=== PATIENT | male | born 1940 | race Caucasian/White ===

== ENCOUNTER → 2023-06-11 09:08 | Outpatient (REF) | payer OTHER, SELFPAY ==
[2023-06-11 09:57] LABS: % Eosinophils 3.8 % (0-6); % Immature Granulocytes 0.2 % (0-0.5); % Lymphocytes 37.1 % (20.5-51.1); % Monocytes 9.3 % (1.7-9.3); % Neutrophils 48.6 % (42.2-75.2); Absolute Eosinophils 0.2 10^3/uL (0-0.7); Absolute Lymphocytes 1.6 10^3/uL (1.2-3.4); Absolute Monocytes 0.4 10^3/uL (0.1-0.6); Hematocrit 41.9 % (39.0-52.0); Hemoglobin 14.8 g/dL (13.0-18.0); Mean Corp Hgb Conc. 35.3 g/dL (33.0-37.0); Mean Corpuscular Volume 93.5 fL (80.0-94.0); Mean Platelet Volume 10.1 fL (7.4-10.4); Nucleated Red Blood Cells % 0 % (-); Platelet Count 200 10^3/uL (130-400); Red Blood Cell Count 4.48 10^6/uL (4.70-6.10); Red Cell Dist. Width 11.9 % (11.5-14.5); White Blood Cell Count 4.2 10^3/uL (4.8-10.8)
[2023-06-11 10:28] LABS: ALT (SGPT) 30 U/L (0-50); AST (SGOT) 21 U/L (17-59); Albumin 4.1 g/dl (3.5-5.0); Alkaline Phosphatase 49 U/L (38-126); Blood Urea Nitrogen 27 mg/dl (9-20); Calcium 9.4 mg/dl (8.4-10.2); Carbon Dioxide 29 mmol/L (22-30); Chloride 101 mmol/L (98-107); Glucose 151 mg/dl (70-99); HDL Cholesterol 43 mg/dl; LDL Cholesterol, Calculated 156 mg/dl; Potassium 4.4 mmol/L (3.5-5.1); Sodium 139 mmol/L (135-145); Total Bilirubin 0.7 mg/dl (0.2-1.3); Total Cholesterol 228 mg/dl (50-199); Total Protein 6.9 g/dl (6.3-8.2); Triglyceride 146 mg/dl (10-149); Very Low Density Lipoprotein 29 mg/dl (0-30); eGFR > 60.00
[2023-06-11 11:01] LABS: PSA, Total - Screen 2.99 ng/ml (0.0-4.0); TSH Reflex To Free T4 1.68 uIU/ml (0.47-4.68)
[2023-06-11 12:29] LABS: Glycohemoglobin (HgbA1c) 7.1 % (4.0-5.6)
== END ==
LOC: REG 09:08
PROVIDERS: ATTENDING PHYSICIAN Internal Medicine
DX: E11.69 Type 2 diabetes mellitus with other specified complication (principal); G47.33 Obstructive sleep apnea (adult) (pediatric); R53.83 Other fatigue; I73.9 Peripheral vascular disease, unspecified; H61.20 Impacted cerumen, unspecified ear; E78.2 Mixed hyperlipidemia; I10 Essential (primary) hypertension; E66.9 Obesity, unspecified; Z00.00 Encounter for general adult medical examination without abnormal findings; Z12.5 Encounter for screening for malignant neoplasm of prostate
CPT/HCPCS: 36415; 80053; 80061; 83036; 84443; 85025; G0103

== ENCOUNTER → 2023-06-28 09:55 | Outpatient (REF) | payer OTHER, SELFPAY | LOC: RAD 09:55 | PROVIDERS: ATTENDING PHYSICIAN Surgery Vascular Surgery; FAMILY PHYSICIAN Internal Medicine | DX: I71.40 Abdominal aortic aneurysm, without rupture, unspecified (principal) | CPT/HCPCS: 76770 ==

== ENCOUNTER → 2023-10-15 08:53 | Outpatient (REF) | payer OTHER, SELFPAY ==
[2023-10-15 09:47] LABS: Glycohemoglobin (HgbA1c) 7.3 % (4.0-5.6)
[2023-10-15 09:57] LABS: ALT (SGPT) 25 U/L (0-50); AST (SGOT) 24 U/L (17-59); Albumin 4.7 g/dl (3.5-5.0); Alkaline Phosphatase 55 U/L (38-126); Direct Bilirubin 0.3 mg/dl (0.0-0.4); Glucose 177 mg/dl (70-99); HDL Cholesterol 59 mg/dl; LDL Cholesterol, Calculated 78 mg/dl; Total Bilirubin 0.7 mg/dl (0.2-1.3); Total Cholesterol 189 mg/dl (50-199); Total Protein 7.6 g/dl (6.3-8.2); Triglyceride 262 mg/dl (10-149); Very Low Density Lipoprotein 52 mg/dl (0-30)
== END ==
LOC: REG 08:53
PROVIDERS: ATTENDING PHYSICIAN Internal Medicine
DX: E16.9 Disorder of pancreatic internal secretion, unspecified (principal); I10 Essential (primary) hypertension; E78.2 Mixed hyperlipidemia; E66.9 Obesity, unspecified; E11.65 Type 2 diabetes mellitus with hyperglycemia
CPT/HCPCS: 36415; 80061; 80076; 82947; 83036

== ENCOUNTER → 2023-12-31 09:11 | Outpatient (REF) | payer OTHER, SELFPAY | LOC: RAD 09:11 | PROVIDERS: ATTENDING PHYSICIAN Registered Nurse; FAMILY PHYSICIAN Internal Medicine | DX: I73.9 Peripheral vascular disease, unspecified (principal); I71.40 Abdominal aortic aneurysm, without rupture, unspecified | CPT/HCPCS: 76770; 93922; 93925 ==

== ENCOUNTER → 2024-02-18 08:51 | Outpatient (REF) | payer OTHER, SELFPAY ==
[2024-02-18 11:17] LABS: ALT (SGPT) 25 U/L (0-50); AST (SGOT) 31 U/L (17-59); Albumin 4.6 g/dl (3.5-5.0); Alkaline Phosphatase 69 U/L (38-126); Glucose 154 mg/dl (70-99); HDL Cholesterol 65 mg/dl; LDL Cholesterol, Calculated 79 mg/dl; Total Bilirubin 0.8 mg/dl (0.2-1.3); Total Cholesterol 174 mg/dl (50-199); Total Protein 7.3 g/dl (6.3-8.2); Triglyceride 151 mg/dl (10-149); Very Low Density Lipoprotein 30 mg/dl (0-30)
== END ==
LOC: REG 08:51
PROVIDERS: ATTENDING PHYSICIAN Internal Medicine
DX: E11.9 Type 2 diabetes mellitus without complications (principal); I10 Essential (primary) hypertension; E78.2 Mixed hyperlipidemia
CPT/HCPCS: 36415; 80061; 80076; 82947; 83036

== ENCOUNTER 2024-05-07 17:56 | Inpatient (IN) | payer OTHER, SELFPAY ==
[2024-05-07] VITALS (27 sets, daily range): BP systolic 102–189; BP diastolic 57–141; BMI 31.7; BMI 35.5
[2024-05-07 11:39] LABS: % Basophils 0.2 % (0-2); % Eosinophils 0.8 % (0-6); % Immature Granulocytes 0.4 % (0-0.5); % Lymphocytes 10.9 % (20.5-51.1); % Monocytes 8.5 % (1.7-9.3); % Neutrophils 79.2 % (42.2-75.2); Absolute Eosinophils 0.1 10^3/uL (0-0.7); Absolute Lymphocytes 1.1 10^3/uL (1.2-3.4); Absolute Monocytes 0.9 10^3/uL (0.1-0.6); Absolute Neutrophils 8.3 10^3/uL (1.4-6.5); Hematocrit 42.7 % (39.0-52.0); Hemoglobin 15.5 g/dL (13.0-18.0); Mean Corp Hgb Conc. 36.3 g/dL (33.0-37.0); Mean Corpuscular Hgb 34.3 pg (27.0-31.0); Mean Corpuscular Volume 94.5 fL (80.0-94.0); Mean Platelet Volume 10.2 fL (7.4-10.4); Nucleated Red Blood Cells % 0 % (-); Platelet Count 190 10^3/uL (130-400); Red Blood Cell Count 4.52 10^6/uL (4.70-6.10); Red Cell Dist. Width 12.9 % (11.5-14.5); White Blood Cell Count 10.4 10^3/uL (4.8-10.8)
[2024-05-07 11:45] LABS: ALT (SGPT) 30 U/L (0-50); AST (SGOT) 46 U/L (17-59); Albumin 5.4 g/dl (3.5-5.0); Alkaline Phosphatase 62 U/L (38-126); Blood Urea Nitrogen 20 mg/dl (9-20); Calcium 9.3 mg/dl (8.4-10.2); Carbon Dioxide 17 mmol/L (22-30); Chloride 97 mmol/L (98-107); Glucose 212 mg/dl (70-99); Potassium 5.7 mmol/L (3.5-5.1); Sodium 136 mmol/L (135-145); Total Protein 8.4 g/dl (6.3-8.2); eGFR > 60.00
--- NOTE | 2024-05-07 14:15 | ED.GENMED ---
History of Present Illness
General
Chief Complaint: Fall
Source: patient
Exam Limitations: none
Time Seen by Provider: 05/07/24 14:02
Nursing documentation reviewed up to this point in time: agreed with
History of Present Illness
History of Present Illness:
83-year-old male with a past medical history of hypertension, AAA status post repair, GERD, diabetes, daily alcohol use who presents to the emergency department for evaluation of right shoulder injury after fall. Patient reports that last night
around 11 PM he was walking in his house; he says he had 'too much to drink' and he lost his balance and fell down. He is not sure whether he hit his head, says that he did not lose consciousness. He landed on his right shoulder and injured the
right shoulder. He says he was not able to get up on his own and so he slept on the ground for the night and when his woke up she discovered him and ultimately convinced him to come to the hospital via EMS. He complains of pain in his right
shoulder but he denies any other complaints. She denies any headache or neck pain, back pain. Denies any pain in the chest/ribs. Denies any abdominal pain. He does not feel nauseated has not been vomiting. He denies any pain in his lower
extremities and was able to put weight on his legs here in the ER. He denies being on any blood thinners aside from baby aspirin.
Past History
Past History
ED Past Medical History: HTN, Hypercholesterolemia, NIDDM and Other (PAD)
ED Past Surgical History: Other (Aortic stent)
Social History
Tobacco: Former smoker
Alcohol: Daily
Personal:
Living: with family
Family History
Family History: Negative Diabetes, Hypertension, Early CAD, Asthma or Cancer
Review of Systems
Review of Systems
All Other Systems: ROS reviewed and negative except as documented in HPI and ROS
Constitutional: Denies fever
Respiratory: Denies trouble breathing
Cardiac: Denies chest pain
ABD/GI: Denies abdominal pain, nausea or vomiting
: Denies flank pain
Musculoskeletal: Reports joint pain; Denies neck pain or back pain
Neurological: Denies dizzy or headache
Phy Exam
Physical Exam
Physical Exam:
General: Awake, alert, oriented x3 with a GCS of 15; no acute distress
Head: Normocephalic, minor contusion to the right frontal scalp
Eyes: Conjunctiva normal, pupils equal round and reactive to light bilaterally
Throat: Airway intact, dry mucous membranes
Neck: Trachea midline, no cervical spine tenderness, good range of motion of the cervical spine
Back: No signs of trauma the back or flank and no reproducible tenderness in the thoracic or lumbar spine
Lungs: Clear to auscultation bilaterally, no wheezing, rales, rhonchi
Heart: Tachycardia with regular rhythm, no murmurs, gallops, or rubs; no chest wall tenderness
Abd: Soft, non distended, nontender
Neuro: Cranial nerves grossly intact, speech fluid, no gross motor or sensory deficits�specifically motor and sensory intact radial, median, ulnar nerve distribution right upper extremity
Extremities: Patient has deformity the right shoulder and pain with any attempts of range of motion of the right shoulder; no tenderness in the right elbow, forearm, wrist, good strong right radial pulse and brisk capillary refill in the hand; rest
of extremities are essentially atraumatic (old abrasions to the shins he says from yardwork); full range of motion in all joints of the lower extremities without pain
Scores
Heart Failure Risk
Heart Failure Risk Score: Not Applicable
Heart Score for Chest Pain Patients
STEMI patient?: Not applicable
Withdrawal Assessment of Alcohol
Withdrawal Assessment Completed?: Not applicable
Course
Orders/Labs/Results
Orders:
Orders
05/07/24 11:11
EKG [Electrocardiogram (*1)] Urgent
Reason for Study: Hypertension, Benign
CR Shoulder, Trauma - Right Urgent
Comment:
Reason For Exam: fall
05/07/24 11:12
EKG- Treatment ONCE
05/07/24 11:24
Complete Blood Count/With Diff Urgent
Comprehensive Metabolic Panel Urgent
Creatine Phosphokinase Urgent
Comment: ADD ON
05/07/24 14:10
Add On- LAB Urgent
Tests Added?: CPK
CT Head W/o Iv Contrast Urgent
Comment:
Reason For Exam: fall with right frontal headstrike
05/07/24 14:11
CT Cervical Spine W/o Iv Contr Urgent
Comment:
Reason For Exam: fall with right frontal headstrike
0.9% Sodium Chloride 1000 ml [Nss] 1,000 ml IV BOLUS
05/07/24 14:38
Ketorolac [Toradol] 15 mg IV NOW STA
05/07/24 16:08
Propofol [Diprivan] 40 ml .ROUTE .STK-MED
05/07/24 16:35
CR Shoulder - Right Min 2 View Urgent
Comment:
Reason For Exam: post closed reduction
Abnormal Lab Results
05/07/24
11:24
RBC 4.52 L 10^6/uL
(4.70-6.10)
MCV 94.5 H fL
(80.0-94.0)
MCH 34.3 H pg
(27.0-31.0)
Absolute Neuts (auto) 8.3 H 10^3/uL
(1.4-6.5)
Absolute Lymphs (auto) 1.1 L 10^3/uL
(1.2-3.4)
Absolute Monos (auto) 0.9 H 10^3/uL
(0.1-0.6)
Neutrophils % 79.2 H %
(42.2-75.2)
Lymphocytes % 10.9 L %
(20.5-51.1)
Potassium 5.7 H mmol/L
(3.5-5.1)
Chloride 97 L mmol/L
(98-107)
Carbon Dioxide 17 L mmol/L
(22-30)
Glucose 212 H mg/dl
(70-99)
Creatine Kinase 1018 H U/L
(55-170)
Total Protein 8.4 H g/dl
(6.3-8.2)
Albumin 5.4 H g/dl
(3.5-5.0)
05/07/24 11:24
05/07/24 11:24
Vital Signs
Initial and Last Documented VS:
Initial Vital Signs
Temp Pulse Resp BP Pulse Ox
36.2 C 107 18 189/103 98
05/07/24 11:08 05/07/24 11:08 05/07/24 11:08 05/07/24 11:08 05/07/24 11:08
Last Documented Vital Signs
Temp Pulse Resp BP Pulse Ox
36.4 C 117 18 125/87 95
05/07/24 16:32 05/07/24 16:37 05/07/24 16:37 05/07/24 16:37 05/07/24 16:37
Procedures
Moderate Sedation
ASA Risk Score: Class III
Chart and allergies reviewed: Yes
Consent for anesthesia obtained: Yes
Time out completed (validating right patient & procedure): Yes
Moderate Sedation Start Time(when first medication is given): 16:32
History of difficult intubation: No
Airway free of obstruction: Yes
Patient has a gag reflex: Yes
Patient is able to open mouth: Yes
Patient has no dentures: Yes
Patient has no loose teeth: Yes
Medication administered by Provider during Moderate Sedation: IV Propofol (mg)
Total dose administered: 100
Time drug administered: 16:32
Moderate Sedation Procedure End Time: 16:42
Joint/Fracture Reduction
Right Shoulder:
Indication for procedure:: dislocated shoulder
Procedure completed by: Gian Murphy MD; Rashard Vickers PA-C
Consent form signed: Yes
Anesthesia/sedation: Moderate sedation
Injury was: closed
Further treatement: needs re-check only
Post reduction exam: stable
Capillary Refill: normal
Normal distal neurovascular exam?: Yes
Peripheral Pulses: radial (right): 2+
MDM/Problems Addressed
Differential Diagnosis Includes:
Right shoulder injury: Fracture, dislocation
MDM/Problems Addressed:
83-year-old male presents for evaluation after mechanical fall while intoxicated last night; laid on the ground because he was unable to get up on his own due to right shoulder injury. Arrives to us hypertensive, tachycardic. Physical exam as
above. He had lab work sent in triage including CBC and a CMP�CBC no clinically significant abnormalities, CMP shows mild hyperkalemia with mild metabolic acidosis. Added CPK given prolonged downtime. EKG reviewed shows sinus rhythm. X-ray of
the shoulder done in triage shows anterior and inferior dislocation on my independent review�no fracture noted. Will send for CT head and cervical spine. Await CPK. Provide IV fluids. Will need sedation and reduction of shoulder dislocation.
Monitor closely reassess after the above.
CT head no acute pathology, CT cervical spine no acute pathology. Labs reviewed patient does have rhabdomyolysis with CPK greater than thousand and mild hyperkalemia. IV fluids in progress. His shoulder dislocation was reduced at bedside under
moderate sedation, postreduction x-ray shows appropriate position, patient placed in a sling will need Ortho follow-up within a week or 2. Advised to maintain sling at all times. Will plan to admit for continued treatment of rhabdomyolysis.
Discussed with hospitalist for admission.
Chronic conditions affecting care:
Daily alcohol use
Acute Exacerbation and/or Progression of Chronic Illness:
Acutely hypertensive
Acute Exacerbation and/or Progression of Chronic Illness: HTN
*Radiology
Radiology exam reviewed: preliminary read by ED provider and radiology read reviewed
*Pulse Oximetry
Patient hypoxic: no
*EKG
Interpreted by ED Provider?: Yes
Heart Rate: 114
Rate: tachycardiac
Rhythm: sinus, PAC's, PVC's and sinus tachycardia
Interval: normal interval
QRS Pattern: normal QRS
Ischemia: non-specific ST changes
*Critical Care Note
Total Time (30-74mins, 75-104mins- exclusive of procedures): Not Applicable
Data Reviewed
Review of Other/Old Records Reveals: Labs and Records
Source: patient, records and ambulance crew
Patient Management
Discussion with other providers: Hospitalist (Discussed with hospitalist)
Escalation/DeEscalation of care consider admission/obs:
Admission indicated
ED Attending Note
-
Portions of this chart may have been created with voice recognition software.� Occasional wrong word or��sound alike� substitutions may have occurred due to the inherent limitations of voice recognition software.
Discharge Plan
Departure
Patient Disposition: Admit
Date of Disposition: 05/07/24
Time of Disposition: 16:45
Admit to doctor: Mary
Presentation/result/management discussed w/ accepting MD/DO: Hospitalist
Discharge Problem:
Rhabdomyolysis, Hyperkalemia, Anterior dislocation of right shoulder
Prescriptions:
No Action
ascorbic acid (vitamin C) [Vitamin C] 1,000 MG tablet
1,000 mg PO DAILY
vitamin A 10,000 UNIT capsule
10,000 unit PO DAILY
vit B complex 100 combo no.2 [B-100 Complex] 100 MG tablet extended release
100 mg PO DAILY
calcium carbonate-mag hydroxid [Rolaids] 1 EACH tablet,chewable
1 ea PO DAILY
aspirin [Ecotrin Low Strength] 81 MG tablet,delayed release (DR/EC)
162 mg PO DAILY
simvastatin 20 MG tablet
20 mg PO HS
esomeprazole magnesium [Nexium] 40 MG capsule,delayed release(DR/EC)
40 mg PO DAILY
ranitidine HCl [Zantac] 150 MG tablet
150 mg PO HS
lisinopril 10 MG tablet
10 mg PO DAILY
vitamin E 400 UNIT capsule
400 unit PO DAILY
chromium 200 MCG capsule
200 mcg PO DAILY
cholecalciferol (vitamin D3) [Vitamin D3] 2,000 UNIT capsule
2,000 unit PO DAILY
omega 5-tcy-dis-fish oil [[place]-3] 1 EACH capsule,delayed release(DR/EC)
350 - 400 mg PO DAILY
zinc 50 MG tablet
50 mg PO DAILY
metformin 500 MG tablet extended release 24 hr
1,000 mg PO BID
lutein 40 MG capsule
40 mg PO DAILY
hydrocortisone acetate 25 MG suppository
25 mg ND BID Qty: 10 0RF
tramadol 50 MG tablet
50 mg PO Q6HPRN PRN (Reason: severe pain) Qty: 10 0RF
lidocaine 5 % adhesive patch,medicated
1 patch topical DAILY Qty: 15 0RF
Rx Instructions:
remove after 12 hrs
Referrals:
Fernando Guzman MD [Family Provider] -
Interventions
Interventions:
*Risk Screen - Suicide Last Done: 05/07/24 11:08
*General Assessment Last Done: 05/07/24 11:08
*Neglect/Abuse Screening Last Done: 05/07/24 14:15
ED- Fall Risk Assessment Last Done: 05/07/24 14:15
*ED COVID-19 Vaccine History Last Done: 05/07/24 11:08
ED-Musculoskeletal Assessment Last Done: 05/07/24 14:15
ED- Neurological Assessment Last Done: 05/07/24 14:15
ED-Skin Assessment Last Done: 05/07/24 14:15
Discharge Date and Time
Print Language: TANZANIAN
[2024-05-07] MEDS: NSS 1000 IV ×2 (14:27→21:57)
[2024-05-07] MEDS: TORADOL 15 MG IV (14:42)
[2024-05-07 14:44] LABS: Creatine Phosphokinase 1018 U/L (55-170)
--- NOTE | 2024-05-07 16:58 | EDRN ---
hospitalist currently at the pts bedside
--- NOTE | 2024-05-07 17:05 | HPS.HSE ---
Family Physician
-
Family Physician: Stefan Guzman
Chief Complaint
-
fall, right shoulder pain
History of Present Illness
83-year-old male past medical history abdominal aortic aneurysm status post repair, hypertension, GERD, diabetes, daily alcohol use presenting with right shoulder injury after a fall. Last night around 11 PM he was walking in his house states that
he had too much to drink and he lost his balance and fell down. He is not sure whether he hit his head. He landed on his right shoulder and injured the right shoulder. He was not able to get up on his own and so slept on the ground for the night
when his woke up she discovered him convince him to come to the hospital. He complains of pain in his right shoulder but denies any other complaints. Denies headache or neck pain or back pain. Denies chest pain or rib pain. Denies abdominal
pain. Denies nausea or vomiting.
He drinks 3-4 drinks of 8 ounces of rum every day which she last drank last night. Denies smoking. Denies any nausea vomiting or palpitations or chest pain or signs of withdrawal currently.
Medical History
Past Medical History
Past Medical History: Reports Other (abdominal aortic aneurysm status post repair, hypertension, GERD, diabetes, daily alcohol use)
Past Surgical History: Reports None
Social History
Tobacco: Non-smoker
Alcohol: Daily
Drug: None
Family History
Family History: Not pertinent
Allergies / Home Medications
Allergies reflects when Allergies were last updated in [facility].
Home Medications with original date entered in [facility]
Allergy/Medication List:
Allergies
Allergy/AdvReac Type Severity Reaction Status Date / Time
egg Allergy Unknown Verified 05/07/24 11:12
nut - unspecified Allergy Swelling Verified 05/07/24 11:12
Penicillins Allergy Swelling Verified 05/07/24 11:12
Home Medications
ascorbic acid (vitamin C) 1,000 mg tablet (Vitamin C) 1,000 mg PO DAILY 03/12/16
aspirin 81 mg tablet,delayed release (Ecotrin Low Strength) 162 mg PO DAILY 03/12/16
calcium carbonate 550 mg-magnesium hydroxide 110 mg chewable tablet (Rolaids) 1 ea PO DAILY 03/12/16
cholecalciferol (vitamin D3) 50 mcg (2,000 unit) capsule (Vitamin D3) 2,000 unit PO DAILY 03/12/16
chromium 200 mcg capsule 200 mcg PO DAILY 03/12/16
esomeprazole magnesium 40 mg capsule,delayed release (Nexium) 40 mg PO DAILY 03/12/16
lisinopril 10 mg tablet 10 mg PO DAILY 03/12/16
omega 3 350 mg-dha 235 mg-epa 90 mg-fish oil 597 mg capsule,delay rel ([place]-3) 350 - 400 mg PO DAILY 03/12/16
ranitidine HCl 150 mg tablet (Zantac) 150 mg PO HS 03/12/16
simvastatin 20 mg tablet 20 mg PO HS 03/12/16
vit B complex 100 combo no.2 100 mg tablet,extended release (B-100 Complex ER) 100 mg PO DAILY 03/12/16
vitamin A 3,000 mcg (10,000 unit) capsule 10,000 unit PO DAILY 03/12/16
vitamin E 268 mg (400 unit) capsule 400 unit PO DAILY 03/12/16
lutein 40 mg capsule 40 mg PO DAILY 11/19/19
metformin 500 mg tablet,extended release 24 hr 1,000 mg PO BID 11/19/19
zinc 50 mg tablet 50 mg PO DAILY 11/19/19
hydrocortisone acetate 25 mg rectal suppository 25 mg [place] BID Gastrointestinal issue ##10 12/23/19
tramadol 50 mg tablet 50 mg PO Q6HPRN PRN severe pain #10 tabs 08/30/20
lidocaine 5 % topical patch 1 patch topical DAILY #15 ea 03/13/23
Review of Systems
-
History Source: Patient
A 12 point ROS was completed and negative except as noted: Yes
Constitutional: Reports No Symptoms
EENT: Reports No Symptoms
Respiratory: Reports No Symptoms
Cardiac: Reports No Symptoms
Abdomen/GI: Reports No Symptoms
: Reports No Symptoms
Musculoskeletal: Reports No Symptoms
Skin: Reports No Symptoms
Neurological: Reports No Symptoms
Endocrine: Reports No Symptoms
Hematologic/Lymphatic: Reports No Symptoms
Psych: Reports No Symptoms
Physical Exam
Vital Signs
Vital Signs
Temp Pulse Resp BP Pulse Ox
98.1 F 110 24 102/72 99
05/07/24 16:50 05/07/24 17:00 05/07/24 17:00 05/07/24 17:00 05/07/24 17:00
Physical Exam
General: Well Developed, Well Nourished and No Apparent Distress
HEENT: NormoCephalic, Moist mucous membranes and Atraumatic
Respiratory: Clear
Cardiac: S1/S2 and Regular Rhythm; No Murmur or Rub
GI: Soft, Non Tender, Non Distended and Normal Bowel Sounds; No Organomegaly
Rectal: Deferred by Provider
Musculoskeletal: No Clubbing, No Cyanosis and No Edema
Skin: No Rash
Neuro: Nonfocal/grossly intact
Laboratory Results
-
05/07/24 11:24
05/07/24 11:24
Laboratory Results
Total Bilirubin 1.0 mg/dl (0.2-1.3) 05/07/24 11:24
AST 46 U/L (17-59) 05/07/24 11:24
ALT 30 U/L (0-50) 05/07/24 11:24
Alkaline Phosphatase 62 U/L (38-126) 05/07/24 11:24
Troponin I Cancelled 05/07/24 11:11
Data Reviewed
-
Lab Data: Labs Reviewed by me
Old Records: Reviewed
Impression/Plan
-
IMPRESSION:
PLAN:
# Right shoulder dislocation
-Reduced in ER
-Splint placed
-Tylenol
# Rhabdomyolysis after fall
# Hyperkalemia
# Metabolic acidosis secondary to rhabdomyolysis
-CK 1000
-IV fluids
-Hold metformin, lisinopril
#Fall secondary to alcohol use
# Daily alcohol user
-Thiamine and folate
-Alcohol withdrawal protocol
Abdominal aortic aneurysm
Essential hypertension
-Hold lisinopril
GERD
-Continue ranitidine, esomeprazole
Type 2 diabetes
-Hold metformin
-ISS
Daily alcohol user
-Alcohol withdrawal protocol
Hyperlipidemia
Obesity
Mild asthma
Obstructive sleep apnea
Erectile dysfunction
Peripheral arterial disease
Full code
DVT prophylaxis�heparin
Regular diet
--- NOTE | 2024-05-07 18:09 | EDRN ---
this RN called the receiving unit and notified them that paper report was going to be tubed up
--- NOTE | 2024-05-07 18:32 | EDRN ---
the pts HR went into the 120-150's, Sinus Tachycardia, this RN notified Dr. Hernandez
[2024-05-07] MEDS: ATIVAN 2 MG IV (18:38)
--- NOTE | 2024-05-07 18:41 | EDRN ---
per Dr. Hernandez, this RN gave Ativan 2mg IV, the pt is resting in stretcher in the lowest position, side rails up x2, call styles within reach, HOB elevated, no s/s of distress, VS WNL, HR in the 120's, the pt asked to go to the bathroom and the pt
was educated on the use of the urinal and was agreeable to it, the pt was provided with a urinal, will continue to monitor the pt closely
--- NOTE | 2024-05-07 18:47 | EDRN ---
this RN also notified Dr. Hernandez that the pt has occasional PVC's, no new orders were received
[2024-05-07] MEDS: HEPARIN 5000 UNITS SC (21:53)
[2024-05-07] MEDS: THIAMINE INJECTION 200 MG IV (21:54)
[2024-05-07 22:42] LABS: Glucose - Point of Care 173 mg/dl (70-99)
[2024-05-08 03:05] VITALS: BP 163/85
--- NOTE | 2024-05-08 03:58 | PTCARENOTE ---
pt received on unit at approximately 05/07. VSS. AAOx2-3. Pt in a right arm sling. Pt oriented to room and able to make needs known, call styles within reach.
[2024-05-08 06:00] VITALS: BMI 35.5
[2024-05-08] MEDS: NSS 1000 IV ×3 (06:41→19:16)
[2024-05-08 07:00] VITALS: BP 167/99
[2024-05-08 08:07] LABS: Glucose - Point of Care 151 mg/dl (70-99)
[2024-05-08] MEDS: NOVOLOG FLEXPEN-LOW RESISTANCE SC ×2 (08:14→17:22)
[2024-05-08] MEDS: HEPARIN 5000 UNITS SC ×2 (08:29→19:13)
[2024-05-08] MEDS: THIAMINE INJECTION 200 MG IV ×2 (08:29→19:12)
[2024-05-08] MEDS: B COMPLEX w/VITAMIN C 1 CAPLET PO (08:30)
[2024-05-08] MEDS: FOLVITE 1 MG PO (08:30)
[2024-05-08] MEDS: VITAMIN D3 (cholecalciferol) 50 MCG PO (08:30)
[2024-05-08] MEDS: VITAMIN C 1000 MG PO (08:30)
[2024-05-08] MEDS: DETROL LA 4 MG PO (08:31)
[2024-05-08] MEDS: VITAMIN E 400 UNITS PO (08:31)
[2024-05-08] MEDS: PROTONIX 40 MG PO (08:31)
[2024-05-08] MEDS: ASPIR LOW (ENTERIC COATED) 81 MG PO (08:31)
[2024-05-08] MEDS: SYMBICORT 160/4.5 MCG INHALER 2 PUFF INH ×2 (08:56→20:16)
[2024-05-08 09:27] LABS: ALT (SGPT) 24 U/L (0-50); AST (SGOT) 39 U/L (17-59); Alkaline Phosphatase 41 U/L (38-126); Blood Urea Nitrogen 23 mg/dl (9-20); Calcium 8.1 mg/dl (8.4-10.2); Carbon Dioxide 21 mmol/L (22-30); Chloride 103 mmol/L (98-107); Estimated Creatinine Clearance 73 ml/min; Glucose 159 mg/dl (70-99); Potassium 4.3 mmol/L (3.5-5.1); Sodium 137 mmol/L (135-145); Total Bilirubin 0.8 mg/dl (0.2-1.3); Total Protein 6.6 g/dl (6.3-8.2); eGFR > 60.00
[2024-05-08] MEDS: ZESTRIL 10 MG PO (09:52)
[2024-05-08] MEDS: PRANDIN 2 MG PO ×2 (09:53→17:20)
[2024-05-08 10:16] LABS: % Basophils 0.5 % (0-2); % Eosinophils 0.2 % (0-6); % Immature Granulocytes 0.3 % (0-0.5); % Lymphocytes 18.2 % (20.5-51.1); % Monocytes 11.6 % (1.7-9.3); % Neutrophils 69.2 % (42.2-75.2); Absolute Lymphocytes 1.1 10^3/uL (1.2-3.4); Absolute Monocytes 0.7 10^3/uL (0.1-0.6); Absolute Neutrophils 4.2 10^3/uL (1.4-6.5); Hematocrit 35.8 % (39.0-52.0); Hemoglobin 13.1 g/dL (13.0-18.0); Mean Corp Hgb Conc. 36.6 g/dL (33.0-37.0); Mean Corpuscular Hgb 34.5 pg (27.0-31.0); Mean Corpuscular Volume 94.2 fL (80.0-94.0); Nucleated Red Blood Cells % 0 % (-); Red Cell Dist. Width 12.9 % (11.5-14.5); White Blood Cell Count 6.1 10^3/uL (4.8-10.8)
[2024-05-08 10:28] LABS: Creatine Phosphokinase 999 U/L (55-170)
[2024-05-08 11:10] VITALS: BP 147/90
[2024-05-08 11:44] LABS: Glucose - Point of Care 211 mg/dl (70-99)
[2024-05-08] MEDS: NOVOLOG FLEXPEN-LOW RESISTANCE 2 UNITS SC (12:10)
[2024-05-08 12:29] LABS: Glycohemoglobin (HgbA1c) 5.6 % (4.0-5.6)
--- NOTE | 2024-05-08 13:30 | W.PN.HOSP.TC ---
Today's Communication/Plan
-
Monitor vitals
See plan
Monitor CK
Encourage hydration
PT/OT
Continue with sling
Assessment / Plan
Assessment / Plan
General: Well Developed, Well Nourished and No Apparent Distress
HEENT: NormoCephalic, Moist mucous membranes and Atraumatic
Respiratory: Clear
Cardiac: S1/S2 and Regular Rhythm; No Murmur or Rub
GI: Soft, Non Tender, Non Distended and Normal Bowel Sounds
Musculoskeletal: No Edema
Neuro: Nonfocal/grossly intact
Right shoulder dislocation
-Reduced in ER
-Sling placed; patient to follow-up with orthopedics outpatient
-Tylenol
# Traumatic rhabdomyolysis after fall
# Hyperkalemia
# Metabolic acidosis secondary to rhabdomyolysis
Monitor CK
-IV fluids
-Hold metformin, lisinopril
#Fall secondary to alcohol use
# Daily alcohol user
-Thiamine and folate
-Alcohol withdrawal protocol
Abdominal aortic aneurysm
Essential hypertension
-Hold lisinopril
GERD
-Continue ranitidine, esomeprazole
Type 2 diabetes
-Hold metformin
-ISS
Daily alcohol user
-Alcohol withdrawal protocol
Hyperlipidemia
Obesity
Mild asthma
Obstructive sleep apnea
Erectile dysfunction
Peripheral arterial disease
Full code
DVT prophylaxis�heparin
Anticipated Discharge: Within 24 hours
Subjective/Interval History
-
Date of Service: May 08, 2024
denies nausea
Objective Data
-
Labs:
Laboratory Results
05/08/24 05/08/24
08:23 09:06
WBC Cancelled 6.1
Hgb Cancelled 13.1
Hct Cancelled 35.8 L
Plt Count Cancelled Pending
Sodium 137
Potassium 4.3
Chloride 103
Carbon Dioxide 21 L
BUN 23 H
Creatinine 0.9
Glucose 159 H
Calcium 8.1 L
Total Bilirubin 0.8
AST 39
ALT 24
Alkaline Phosphatase 41
Vital Signs:
Vital Signs
Temp Pulse Resp BP Pulse Ox
98.7 F 109 20 147/90 95
05/08/24 11:10 05/08/24 11:10 05/08/24 11:10 05/08/24 11:10 05/08/24 11:10
I&O
05/07/24 05/08/24 05/09/24
06:59 06:59 06:59
Intake Total 1080 / 1080 480 / 480
Output Total 150 / 150
Balance 1080 / 1080 330 / 330
[2024-05-08 13:36] LABS: Platelet Count 100 10^3/uL (130-400)
[2024-05-08] MEDS: MOTRIN 400 MG PO (14:39)
[2024-05-08 15:00] VITALS: BP 127/92
--- NOTE | 2024-05-08 16:28 | CM ---
traffic incident management manager reviewed patient's chart and met with patient and patient states that he fell at home, he lives with his spouse in a 2 story home, 2 steps to enter, patient is independent with adl's and ambulation, no dme, home with spouse when stable.
PCP: Dr Guzman
Pharmacy [facility].
[2024-05-08] MEDS: LIPITOR 20 MG PO (17:20)
[2024-05-08 17:24] LABS: Glucose - Point of Care 94 mg/dl (70-99)
[2024-05-08 19:36] VITALS: BP 123/74
[2024-05-08 20:35] LABS: Glucose - Point of Care 161 mg/dl (70-99)
[2024-05-08 23:17] VITALS: BP 145/95
[2024-05-09 03:03] VITALS: BP 158/99
--- NOTE | 2024-05-09 04:13 | PTCARENOTE ---
NSS 120ml/hr reached renew stop date, INTAKE SPECIALIST notified. D/T rhabdomyolysis and elevated CK, fluids renewed and restarted.
[2024-05-09] MEDS: NSS 1000 IV (04:16)
[2024-05-09 07:35] LABS: Glucose - Point of Care 146 mg/dl (70-99)
[2024-05-09 07:46] VITALS: BP 151/93
[2024-05-09] MEDS: SYMBICORT 160/4.5 MCG INHALER 2 PUFF INH (08:01)
[2024-05-09] MEDS: HEPARIN 5000 UNITS SC (09:35)
[2024-05-09] MEDS: VITAMIN C 1000 MG PO (09:36)
[2024-05-09] MEDS: VITAMIN E 400 UNITS PO (09:36)
[2024-05-09] MEDS: VITAMIN D3 (cholecalciferol) 50 MCG PO (09:36)
[2024-05-09] MEDS: PRANDIN 2 MG PO ×2 (09:36→13:30)
[2024-05-09] MEDS: DETROL LA 4 MG PO (09:37)
[2024-05-09] MEDS: B COMPLEX w/VITAMIN C 1 CAPLET PO (09:37)
[2024-05-09] MEDS: ASPIR LOW (ENTERIC COATED) 81 MG PO (09:37)
[2024-05-09] MEDS: FOLVITE 1 MG PO (09:37)
[2024-05-09] MEDS: ZESTRIL 10 MG PO (09:38)
[2024-05-09] MEDS: THIAMINE INJECTION 200 MG IV (09:38)
[2024-05-09] MEDS: PROTONIX 40 MG PO (09:38)
[2024-05-09] MEDS: NOVOLOG FLEXPEN-LOW RESISTANCE SC (09:38)
[2024-05-09] MEDS: TYLENOL 650 MG PO (10:03)
[2024-05-09 11:19] VITALS: BP 140/91
[2024-05-09 11:25] LABS: % Basophils 0.4 % (0-2); % Eosinophils 1.8 % (0-6); % Immature Granulocytes 0.4 % (0-0.5); % Lymphocytes 15.9 % (20.5-51.1); % Monocytes 9.6 % (1.7-9.3); % Neutrophils 71.9 % (42.2-75.2); Absolute Eosinophils 0.1 10^3/uL (0-0.7); Absolute Lymphocytes 0.9 10^3/uL (1.2-3.4); Absolute Monocytes 0.5 10^3/uL (0.1-0.6); Hematocrit 36.6 % (39.0-52.0); Hemoglobin 12.7 g/dL (13.0-18.0); Mean Corp Hgb Conc. 34.7 g/dL (33.0-37.0); Mean Corpuscular Hgb 33.5 pg (27.0-31.0); Mean Corpuscular Volume 96.6 fL (80.0-94.0); Mean Platelet Volume 10.7 fL (7.4-10.4); Nucleated Red Blood Cells % 0 % (-); Platelet Count 121 10^3/uL (130-400); Red Blood Cell Count 3.79 10^6/uL (4.70-6.10); Red Cell Dist. Width 12.8 % (11.5-14.5); White Blood Cell Count 5.5 10^3/uL (4.8-10.8)
[2024-05-09 11:26] LABS: Glucose - Point of Care 161 mg/dl (70-99)
[2024-05-09 11:58] LABS: ALT (SGPT) 22 U/L (0-50); AST (SGOT) 30 U/L (17-59); Albumin 3.6 g/dl (3.5-5.0); Alkaline Phosphatase 52 U/L (38-126); Blood Urea Nitrogen 16 mg/dl (9-20); Calcium 7.8 mg/dl (8.4-10.2); Carbon Dioxide 21 mmol/L (22-30); Chloride 103 mmol/L (98-107); Creatine Phosphokinase 782 U/L (55-170); Estimated Creatinine Clearance 83 ml/min; Glucose 145 mg/dl (70-99); Potassium 3.8 mmol/L (3.5-5.1); Sodium 134 mmol/L (135-145); Total Bilirubin 0.9 mg/dl (0.2-1.3); Total Protein 6.1 g/dl (6.3-8.2); eGFR > 60.00
[2024-05-09] MEDS: NOVOLOG FLEXPEN-LOW RESISTANCE 1 UNITS SC (13:31)
--- NOTE | 2024-05-09 13:33 | W.PN.HOSP.TC ---
Addendum entered and electronically signed by Masood Thomas MD 05/09/24 15:11:
Home health per PT. EKG with sinus tachycardia.
Time of discharge 38 minutes
Original Note:
Today's Communication/Plan
-
Monitor vital signs see plan
Check EKG
PT/OT
If EKG is okay and does well with PT then likely can go home
Discussed with spouse over the phone
Assessment / Plan
Assessment / Plan
General: Well Developed, Well Nourished and No Apparent Distress
HEENT: Normocephalic, Moist mucous membranes and Atraumatic
Respiratory: Clear
Cardiac: S1/S2 and Regular Rhythm; No Murmur or Rub
GI: Soft, Non Tender, Non Distended and Normal Bowel Sounds
Musculoskeletal: No Edema
Neuro: Nonfocal/grossly intact
Right shoulder dislocation
-Reduced in ER
-Sling placed; patient to follow-up with orthopedics outpatient
-Tylenol
# Traumatic rhabdomyolysis after fall
# Hyperkalemia
# Metabolic acidosis secondary to rhabdomyolysis
Monitor CK, downtrending
-IV fluids
-Hold metformin, lisinopril
#Fall secondary to alcohol use
# Daily alcohol user
-Thiamine and folate
-Alcohol withdrawal protocol
tachycardia
check EKG
Abdominal aortic aneurysm
Essential hypertension
-Hold lisinopril
Hyponatremia
Monitor
GERD
-Continue ranitidine, esomeprazole
Type 2 diabetes
-Hold metformin
-ISS
Thrombocytopenia
Likely secondary to alcohol
Monitor
Daily alcohol user
-Alcohol withdrawal protocol
Hyperlipidemia
Obesity
Mild asthma
Obstructive sleep apnea
Erectile dysfunction
Peripheral arterial disease
Full code
DVT prophylaxis�heparin
Anticipated Discharge: Within 24 hours
Subjective/Interval History
-
Date of Service: May 09, 2024
denies pain
Objective Data
-
Labs:
Laboratory Results
05/09/24
09:34
WBC 5.5
Hgb 12.7 L
Hct 36.6 L
Plt Count 121 L D
Sodium 134 L
Potassium 3.8
Chloride 103
Carbon Dioxide 21 L
BUN 16
Creatinine 0.8
Glucose 145 H
Calcium 7.8 L
Total Bilirubin 0.9
AST 30
ALT 22
Alkaline Phosphatase 52
Vital Signs:
Vital Signs
Temp Pulse Resp BP Pulse Ox
97.6 F 130 20 140/91 98
05/09/24 11:19 05/09/24 11:19 05/09/24 11:19 05/09/24 11:19 05/09/24 11:19
I&O
05/08/24 05/09/24 05/10/24
06:59 06:59 06:59
Intake Total 1080 / 1080 2400 / 2400
Output Total 350 / 350
Balance 1080 / 1080 2049
[2024-05-09 14:06] VITALS: BP 124/82; PULSE 102; O2SAT 96
[2024-05-09 14:21] VITALS: BP 124/82; PULSE 103; O2SAT 96
--- NOTE | 2024-05-09 15:14 | W.DCSUMMARY ---
Discharge Summary
Discharge Data
Date of Admission: 05/07/24
Date of Discharge: 05/09/24
-
Pending Results: No
Hospital Course
83-year-old male with past medical history of alcohol use, abdominal aortic aneurysm, essential hypertension, GERD, type 2 diabetes mellitus, thrombocytopenia, hyperlipidemia, asthma, obesity, obstructive sleep apnea, erectile dysfunction,
peripheral arterial disease came to the hospital after a fall with right shoulder dislocation which was reduced in the ER. Patient was also placed on sling. Patient instructed to follow-up with orthopedic closely outpatient. Patient also had
acute traumatic rhabdomyolysis after fall which over time continue to improve with fluids. He was evaluated by physical therapy who recommended home health. Once his symptoms continue to improve, he was then discharged home with instructions to
follow-up with PCP and orthopedics outpatient.
Discharge Plan
-
Patient Disposition: Home with Home Care
Discharge Diagnosis/Procedures: Right shoulder dislocation reduced in ED
Traumatic rhabdomyolysis after fall
Alcohol Use
Sinus tachycardia
Diet: As tolerated
Activity: As tolerated
Additional Activity: Non weight bearing right upper extremity in sling
Driving Restrictions: Not until seen by your Dr
Bathing Restrictions: None
Others Tests: Repeat x-ray with orthopedics
Referrals:
Des Egan MD [Active] - in less than 1 week
Fernando Guzman MD [Family Provider] - in less than 1 week
Prescriptions:
New
acetaminophen 325 mg Tablet
650 mg PO Q4HPRN PRN (Reason: mild pain/[place]/temp> 100.4F) Qty: 0 0RF
thiamine HCl (vitamin B1) 100 mg Tablet
100 mg PO BID Qty: 60 0RF
folic acid 1 mg Tablet
1 mg PO DAILY Qty: 30 0RF
Continued
ascorbic acid (vitamin C) [Vitamin C] 1,000 MG tablet
1,000 mg PO DAILY
vitamin A 10,000 UNIT capsule
10,000 unit PO DAILY
B-100 Complex 100 MG tablet extended release
100 mg PO DAILY
aspirin [Ecotrin Low Strength] 81 MG tablet,delayed release (DR/EC)
81 mg PO DAILY
esomeprazole magnesium [Nexium] 40 MG capsule,delayed release(DR/EC)
40 mg PO DAILY
lisinopril 10 MG tablet
10 mg PO DAILY
vitamin E 400 UNIT capsule
400 unit PO DAILY
cholecalciferol (vitamin D3) [Vitamin D3] 2,000 UNIT capsule
2,000 unit PO DAILY
[place]-3 1 EACH capsule,delayed release(DR/EC)
350 - 400 mg PO DAILY
metformin 500 MG tablet extended release 24 hr
2,000 mg PO DAILY
lutein 40 MG capsule
40 mg PO DAILY
simvastatin 40 mg Tablet
40 mg PO HS
ibuprofen 200 mg Tablet
400 mg PO Q6HPRN PRN (Reason: mild pain)
repaglinide 1 mg Tablet
2 mg PO AC
mirabegron 50 mg Tablet Extended Release 24 Hr
50 mg PO DAILY
fluticasone furoate-vilanterol [Breo Ellipta] 100-25 mcg/dose Blister With Device
1 inh INHALATION DAILY
Discharge Orders:
Discharge Patient (As Directed); Ordered 05/09/24
Ordered By: Masood Thomas
Discharge Date and Time
Discharge Date/Time: 05/09/24 16:57
Print Language: [place]
--- NOTE | 2024-05-09 15:26 | CM ---
Patient is for discharge to home today, visiting nurse options reviewed with patietn and spouse and they have selected [facility], [facility] liaison contacted.
Plan; Home with [facility].
[2024-05-09 15:32] VITALS: BP 119/78
--- NOTE | 2024-05-09 15:51 | VNURNOTE ---
Home Health Liaison met with patient and spouse at bedside to discuss [facility] nurse/therapy, visits, schedule and homebound status. Both are agreeable and understand that visits at home will be 2-3 x per week to assess and teach medical management.
[facility] brochure provided with contact information. Spouse and patient are aware that [facility] will contact them for start of care in 1-2 days after discharge from . [facility] referral completed in [facility].
== END 2024-05-09 16:57 | disposition home health service (06) | DRG 563 ==
LOC: 4 WEST ACU 17:56
PROVIDERS: Emergency Medicine; ADMITTING PHYSICIAN Hospitalist; ATTENDING PHYSICIAN Internal Medicine; EMERGENCY PHYSICIAN Emergency Medicine; FAMILY PHYSICIAN Internal Medicine
DX: S43.014A Anterior dislocation of right humerus, initial encounter (principal); E87.20 Acidosis, unspecified; E87.1 Hypo-osmolality and hyponatremia; T79.6XXA Traumatic ischemia of muscle, initial encounter; W01.0XXA Fall on same level from slipping, tripping and stumbling without subsequent striking against object, initial encounter; R00.0 Tachycardia, unspecified; E87.5 Hyperkalemia; I71.40 Abdominal aortic aneurysm, without rupture, unspecified; I10 Essential (primary) hypertension; D69.6 Thrombocytopenia, unspecified; E11.9 Type 2 diabetes mellitus without complications; K21.9 Gastro-esophageal reflux disease without esophagitis; E78.00 Pure hypercholesterolemia, unspecified; E66.9 Obesity, unspecified; G47.33 Obstructive sleep apnea (adult) (pediatric); J45.909 Unspecified asthma, uncomplicated; Z68.35 Body mass index [BMI] 35.0-35.9, adult; Z79.82 Long term (current) use of aspirin; Z79.84 Long term (current) use of oral hypoglycemic drugs; Z79.51 Long term (current) use of inhaled steroids
CPT/HCPCS: 23650; 70450; 72125; 73020; 73030; 80053; 82550; 82962; 83036; 85025; 93005; 94640; 96361; 96374; 97163; 97166; 99152; 99285

== ENCOUNTER → 2024-06-16 08:29 | Outpatient (REF) | payer OTHER, SELFPAY ==
[2024-06-16 09:41] LABS: % Basophils 0.9 % (0-2); % Eosinophils 2.4 % (0-6); % Immature Granulocytes 0.2 % (0-0.5); % Lymphocytes 32.2 % (20.5-51.1); % Monocytes 11.2 % (1.7-9.3); % Neutrophils 53.1 % (42.2-75.2); Absolute Eosinophils 0.1 10^3/uL (0-0.7); Absolute Lymphocytes 1.5 10^3/uL (1.2-3.4); Absolute Monocytes 0.5 10^3/uL (0.1-0.6); Absolute Neutrophils 2.4 10^3/uL (1.4-6.5); Hemoglobin 14.4 g/dL (13.0-18.0); Mean Corp Hgb Conc. 35.1 g/dL (33.0-37.0); Mean Corpuscular Volume 93.8 fL (80.0-94.0); Mean Platelet Volume 10.5 fL (7.4-10.4); Nucleated Red Blood Cells % 0 % (-); Platelet Count 163 10^3/uL (130-400); Red Blood Cell Count 4.37 10^6/uL (4.70-6.10); Red Cell Dist. Width 11.9 % (11.5-14.5); White Blood Cell Count 4.5 10^3/uL (4.8-10.8)
[2024-06-16 11:03] LABS: ALT (SGPT) 19 U/L (0-50); AST (SGOT) 24 U/L (17-59); Albumin 4.3 g/dl (3.5-5.0); Alkaline Phosphatase 57 U/L (38-126); Blood Urea Nitrogen 32 mg/dl (9-20); Calcium 9.7 mg/dl (8.4-10.2); Carbon Dioxide 28 mmol/L (22-30); Chloride 103 mmol/L (98-107); Glucose 134 mg/dl (70-99); HDL Cholesterol 57 mg/dl; LDL Cholesterol, Calculated 81 mg/dl; Potassium 5.1 mmol/L (3.5-5.1); Sodium 140 mmol/L (135-145); Total Bilirubin 0.5 mg/dl (0.2-1.3); Total Cholesterol 168 mg/dl (50-199); Total Protein 7.2 g/dl (6.3-8.2); Triglyceride 152 mg/dl (10-149); Very Low Density Lipoprotein 30 mg/dl (0-30); eGFR 54.85
[2024-06-16 11:34] LABS: Glycohemoglobin (HgbA1c) 5.5 % (4.0-5.6)
== END ==
LOC: REG 08:29
PROVIDERS: ATTENDING PHYSICIAN Internal Medicine
DX: E11.69 Type 2 diabetes mellitus with other specified complication (principal); E78.2 Mixed hyperlipidemia; E66.9 Obesity, unspecified; E11.65 Type 2 diabetes mellitus with hyperglycemia; Z00.01 Encounter for general adult medical examination with abnormal findings
CPT/HCPCS: 36415; 80053; 80061; 83036; 85025

== ENCOUNTER → 2024-06-24 13:21 | Outpatient (REF) | payer OTHER, SELFPAY | LOC: PAVMRI 13:21 | PROVIDERS: ATTENDING PHYSICIAN Orthopaedic Surgery; FAMILY PHYSICIAN Internal Medicine | DX: S43.004D Unspecified dislocation of right shoulder joint, subsequent encounter (principal); M25.511 Pain in right shoulder | CPT/HCPCS: 73221 ==

== ENCOUNTER → 2024-10-13 09:36 | Outpatient (REF) | payer OTHER, SELFPAY ==
[2024-10-13 11:04] LABS: Glycohemoglobin (HgbA1c) 5.5 % (4.0-5.6)
[2024-10-13 11:38] LABS: ALT (SGPT) 16 U/L (0-50); AST (SGOT) 21 U/L (17-59); Albumin 4.6 g/dl (3.5-5.0); Alkaline Phosphatase 60 U/L (38-126); Direct Bilirubin 0.1 mg/dl (0.0-0.4); Glucose 132 mg/dl (70-99); HDL Cholesterol 66 mg/dl; LDL Cholesterol, Calculated 79 mg/dl; Total Bilirubin 0.6 mg/dl (0.2-1.3); Total Cholesterol 170 mg/dl (50-199); Total Protein 7.2 g/dl (6.3-8.2); Triglyceride 125 mg/dl (10-149); Very Low Density Lipoprotein 25 mg/dl (0-30)
== END ==
LOC: REG 09:36
PROVIDERS: ATTENDING PHYSICIAN Internal Medicine
DX: E11.65 Type 2 diabetes mellitus with hyperglycemia (principal); E66.9 Obesity, unspecified; E78.2 Mixed hyperlipidemia
CPT/HCPCS: 36415; 80061; 80076; 82947; 83036

== ENCOUNTER → 2025-01-12 08:30 | Outpatient (REF) | payer OTHER, SELFPAY | LOC: RAD 08:30 | PROVIDERS: ATTENDING PHYSICIAN Surgery Vascular Surgery; FAMILY PHYSICIAN Internal Medicine | DX: I71.40 Abdominal aortic aneurysm, without rupture, unspecified (principal) | CPT/HCPCS: 76770 ==

== ENCOUNTER 2025-02-03 15:01 | Emergency (ER) | payer OTHER, SELFPAY ==
[2025-02-03 15:05] VITALS: BP 191/116
--- NOTE | 2025-02-03 16:05 | ED.MUSCINJ ---
HPI-Injury
General
Chief Complaint: Fall
Source: patient
Exam Limitations: none
Time Seen by Provider: 02/03/25 16:04
Nursing documentation reviewed up to this point in time: agreed with
History of Present Illness-Injury
Initial Injury comments:
84-year-old female with history of AAA, HTN, GERD, NIDDM, previous smoker who presents for right mid chest wall/rib area pain after falling at 8 PM last night and hitting the area on the table in his living room. He is not anticoagulated. He did
not hit his head and denies any other injury. He denies feeling short of breath. He has taken Tylenol and ibuprofen alternately with some relief of the pain.
Past History
Past History
ED Past Medical History: HTN, Hypercholesterolemia, NIDDM and Other (PAD)
ED Past Surgical History: Other (Aortic stent)
Social History
Tobacco: Former smoker
Alcohol: Daily
Personal:
Living: with family
Family History
Family History: Negative Diabetes, Hypertension, Early CAD, Asthma or Cancer
Review of Systems
Review of Systems
Allergies reviewed?: Yes
All Other Systems: ROS reviewed and negative except as documented in HPI and ROS
Musculoskeletal: Reports other (Chronic right shoulder pain after dislocation 05/02 still going to PT., )
Phy Exam
Physical Exam
Physical Exam:
GENERAL: No acute distress. A&Ox3.
CONSTITUTIONAL: Afebrile.
EYES: clear, conjunctivae normal
ENMT: moist mucus membranes, Pharynx nl
RESPIRATORY: Regular respirations, nonlabored, lungs clear. Pulse ox 98% room air
CARDIOVASCULAR: Regular rate and rhythm, no murmurs, no rubs.
GI: Soft, obese, nontender, normal BS
MUSCULOSKELETAL: Palpation over mid anterior ribs 6-7 immediately reproduces pain pain. There is no swelling or discoloration here. Moves with ease. Well perfused.
SKIN: Warm, dry, pink
PSYCH: Normal mood and affect. Well kept, interactive and appropriate
NEUROLOGIC: Awake, alert and oriented. No focal neurological deficits
Injury Course
Orders/Labs/Results
Orders:
Orders
02/03/25 15:08
Chest [CR Chest - 2 Views ] Urgent
Comment:
Reason For Exam: fall, right rib pain
02/03/25 16:34
Spirometry, Incentive [Rx Incentive Spirometry] [RESP] Urgent
Frequency: q1h while awake
MDM/Problems Addressed
Differential Diagnosis Includes:
Fracture rib versus contusion chest wall. Hemo/pneumothorax
MDM/Problems Addressed:
84-year-old female with history of AAA, HTN, GERD, NIDDM, previous smoker who presents for right mid chest wall/rib area pain after falling at 8 PM last night and hitting the area on the table in his living room. He is not anticoagulated. He did
not hit his head and denies any other injury. He denies feeling short of breath. He has taken Tylenol and ibuprofen alternately with some relief of the pain.
Patient kindly declines when offered stronger pain medicine. He states ', not much pain.' He does wince with movements, and at bedside is encouraging him to take something stronger for pain as he had trouble getting to sleep last night due to
pain
Lungs CTA, coarse junky cough at times which he states is chronic. No hypoxemia
Chest x-ray radiology report read: No acute cardiopulmonary process. No clear evidence for rib fracture within the limitations of the provided projections.
Patient given an incentive spirometer use
Patient ambulated out with normal gait on discharge.
Prescription for tramadol No. 10 tablets sent to his pharmacy
*Pulse Oximetry
SaO2: 97
Oxygen Mode of Delivery: Room air
Patient hypoxic: no
*Critical Care Note
Total Time (30-74mins, 75-104mins- exclusive of procedures): Not Applicable
ED Attending Note
-
Portions of this chart may have been created with voice recognition software.� Occasional wrong word or��sound alike� substitutions may have occurred due to the inherent limitations of voice recognition software.
Discharge Plan
Departure
Patient Disposition: Home (Routine Discharge)
Date of Disposition: 02/03/25
Time of Disposition: 16:35
Patient with high blood pressure during this ER visit?: No
Condition: Good
Discharge Problem:
Contusion of anterior chest wall
Instructions: Rib fracture or bruised rib - ED (DC)
Prescriptions:
New
tramadol 50 mg tablet
50 mg PO TID PRN (Reason: Pain) Qty: 10 0RF
No Action
ascorbic acid (vitamin C) [Vitamin C] 1,000 MG tablet
1,000 mg PO DAILY
vitamin A 10,000 UNIT capsule
10,000 unit PO DAILY
B-100 Complex 100 MG tablet extended release
100 mg PO DAILY
aspirin [Ecotrin Low Strength] 81 MG tablet,delayed release (DR/EC)
81 mg PO DAILY
esomeprazole magnesium [Nexium] 40 MG capsule,delayed release(DR/EC)
40 mg PO DAILY
lisinopril 10 MG tablet
10 mg PO DAILY
vitamin E 400 UNIT capsule
400 unit PO DAILY
cholecalciferol (vitamin D3) [Vitamin D3] 2,000 UNIT capsule
2,000 unit PO DAILY
[place]-3 1 EACH capsule,delayed release(DR/EC)
350 - 400 mg PO DAILY
metformin 500 MG tablet extended release 24 hr
2,000 mg PO DAILY
lutein 40 MG capsule
40 mg PO DAILY
simvastatin 40 mg Tablet
40 mg PO HS
ibuprofen 200 mg Tablet
400 mg PO Q6HPRN PRN (Reason: mild pain)
repaglinide 1 mg Tablet
2 mg PO AC
mirabegron 50 mg Tablet Extended Release 24 Hr
50 mg PO DAILY
fluticasone furoate-vilanterol [Breo Ellipta] 100-25 mcg/dose Blister With Device
1 inh INHALATION DAILY
acetaminophen 325 mg Tablet
650 mg PO Q4HPRN PRN (Reason: mild pain/[place]/temp> 100.4F) Qty: 0 0RF
thiamine HCl (vitamin B1) 100 mg Tablet
100 mg PO BID Qty: 60 0RF
folic acid 1 mg Tablet
1 mg PO DAILY Qty: 30 0RF
Referrals:
Fernando Guzman MD [Family Provider, Internal Medicine] - Follow up in 2-3 days
Activity Restrictions/Additional Instructions:
As we discussed, Tylenol and ibuprofen as needed for mild to moderate pain and use the tramadol as needed for worse pain.
Use the incentive spirometer 10 times every hour while awake for the next week.
See your doctor in 3 to 4 days for recheck.
Interventions
Interventions:
*Risk Screen - Suicide Last Done: 02/03/25 15:05
*General Assessment Last Done: 02/03/25 15:05
*Neglect/Abuse Screening Last Done: 02/03/25 15:05
*ED- Fall Risk Assessment Last Done: 02/03/25 15:05
*ED COVID-19 Vaccine History Last Done: 02/03/25 15:05
*Nursing Disposition Last Done: 02/03/25 16:39
ED-Musculoskeletal Assessment Last Done: 02/03/25 16:11
ED- Neurological Assessment Last Done: 02/03/25 16:11
ED-Skin Assessment Last Done: 02/03/25 16:12
Discharge Date and Time
Discharge Date/Time: 02/03/25 16:47
Print Language: [place]
[2025-02-03 16:34] VITALS: BP 185/95
== END 2025-02-03 16:47 | disposition home or self-care (01) ==
LOC: EMR 15:01
PROVIDERS: EMERGENCY PHYSICIAN Emergency Medicine; FAMILY PHYSICIAN Internal Medicine
DX: S20.214A Contusion of middle front wall of thorax, initial encounter (principal); E11.51 Type 2 diabetes mellitus with diabetic peripheral angiopathy without gangrene; I10 Essential (primary) hypertension; E78.00 Pure hypercholesterolemia, unspecified; I71.40 Abdominal aortic aneurysm, without rupture, unspecified; K21.9 Gastro-esophageal reflux disease without esophagitis; M25.511 Pain in right shoulder; G89.21 Chronic pain due to trauma; Z79.82 Long term (current) use of aspirin; Z79.84 Long term (current) use of oral hypoglycemic drugs; Z95.828 Presence of other vascular implants and grafts; Z87.891 Personal history of nicotine dependence; Z82.49 Family history of ischemic heart disease and other diseases of the circulatory system; W01.190A Fall on same level from slipping, tripping and stumbling with subsequent striking against furniture, initial encounter; Y92.008 Other place in unspecified non-institutional (private) residence as the place of occurrence of the external cause
CPT/HCPCS: 99283; 71046

== ENCOUNTER → 2025-03-12 10:13 | Outpatient (REF) | payer OTHER, SELFPAY ==
[2025-03-12 11:27] LABS: ALT (SGPT) 19 U/L (0-50); AST (SGOT) 22 U/L (17-59); Albumin 4.6 g/dl (3.5-5.0); Alkaline Phosphatase 58 U/L (38-126); Glucose 123 mg/dl (70-99); HDL Cholesterol 68 mg/dl; LDL Cholesterol, Calculated 74 mg/dl; Total Protein 7.7 g/dl (6.3-8.2); Very Low Density Lipoprotein 49 mg/dl (0-30)
[2025-03-12 12:11] LABS: Glycohemoglobin (HgbA1c) 5.7 % (4.0-5.9)
== END ==
LOC: REG 10:13
PROVIDERS: ATTENDING PHYSICIAN Internal Medicine
DX: E11.69 Type 2 diabetes mellitus with other specified complication (principal); E11.65 Type 2 diabetes mellitus with hyperglycemia; E66.9 Obesity, unspecified; I10 Essential (primary) hypertension
CPT/HCPCS: 36415; 80061; 80076; 82947; 83036